=== PATIENT | female | born 1950 | race African-American/Black ===

== ENCOUNTER 2016-12-12 06:25 | Day surgery (SDC) | payer OTHER ==
[~2016-12-12] VITALS: Ht 162.6 cm; Wt 96.2 kg
[~2016-12-12 06:25] MED LIST: AMLODIPINE BESYL5 MG PO; ERGOCALCIF50000 UNIT PO; GABAPENTIN600 MG PO; GLUCOPHAGE1000 MG PO; GLYBURIDE5 MG PO; HYZAAR 100-21 TABLET PO; IRON 100-VITAM1 EACH PO; LISINOPRIL10 MG PO; METFORMIN HCL1000 MG PO; NEURONTIN300 MG PO; NORVASC10 MG PO; SIMVASTATIN20 MG PO; ULTRAM50 MG PO; VITAMIN B-12500 MC3 PO; ZYRTEC10 M2 PO
[2016-12-12 07:08] VITALS: BP 167/77
[2016-12-12 08:38] LABS: POINT-OF-CARE METER ID UU13113694
[2016-12-12 10:18] LABS: POINT-OF-CARE METER ID UU13113694
[2016-12-12] MEDS ORDERED: NORCO 5/3251 TABLET PO (11:46)
[2016-12-12 12:55] LABS: POINT-OF-CARE METER ID UU13113675
[2016-12-12 14:13] VITALS: BP 137/65
[2016-12-12 15:13] VITALS: BP 144/66
[2016-12-12 15:24] LABS: POINT-OF-CARE METER ID UU13113675
[2016-12-12 16:50] VITALS: BP 130/77
[2016-12-12 17:15] VITALS: BP 154/82
== END 2016-12-12 17:45 | disposition home or self-care (01) ==
LOC: NUC 06:25 → SDC 06:25
PROVIDERS: Surgery
DX: C50.912 Malignant neoplasm of unspecified site of left female breast (principal); C44.591 Other specified malignant neoplasm of skin of breast; I10 Essential (primary) hypertension; E78.5 Hyperlipidemia, unspecified; E11.9 Type 2 diabetes mellitus without complications; E53.8 Deficiency of other specified B group vitamins; Z68.38 Body mass index [BMI] 38.0-38.9, adult; E66.9 Obesity, unspecified; Z80.3 Family history of malignant neoplasm of breast; Z80.8 Family history of malignant neoplasm of other organs or systems; Z80.9 Family history of malignant neoplasm, unspecified; Z79.84 Long term (current) use of oral hypoglycemic drugs
CPT/HCPCS: 78195; 78999; 82948; 88305; A9541; J0330; J0690; J1100; J1170; J2250; J2405; J3010

== ENCOUNTER 2017-01-11 08:59 | Day surgery (SDC) | payer OTHER ==
[~2017-01-11] VITALS: Ht 162.6 cm; Wt 96.3 kg
[~2017-01-11 08:59] MED LIST changes: +NORCO 5/3251 TABLET PO
[2017-01-11 09:20] VITALS: BP 185/84
[2017-01-11 09:39] LABS: POINT-OF-CARE METER ID UU13113694
[2017-01-11 13:35] LABS: POINT-OF-CARE METER ID UU13113675; POINT-OF-CARE USER ID ADMKMM76
[2017-01-11] MEDS ORDERED: NORCO 5/3251 TABLET PO (13:43)
[2017-01-11 14:23] LABS: POINT-OF-CARE METER ID UU13113675
[2017-01-11 14:55] VITALS: BP 175/92
[2017-01-11 15:59] VITALS: BP 160/74
[2017-01-11 16:30] VITALS: BP 148/67
== END 2017-01-11 17:05 | disposition home or self-care (01) ==
LOC: SDC 08:59
PROVIDERS: Surgery
PROC: 0HBU0ZZ Excision of Left Breast, Open Approach (ICD-10-PCS; principal; 2017-01-11)
DX: C50.912 Malignant neoplasm of unspecified site of left female breast (principal); E78.5 Hyperlipidemia, unspecified; I12.9 Hypertensive chronic kidney disease with stage 1 through stage 4 chronic kidney disease, or unspecified chronic kidney disease; E11.22 Type 2 diabetes mellitus with diabetic chronic kidney disease; E11.65 Type 2 diabetes mellitus with hyperglycemia; Z79.84 Long term (current) use of oral hypoglycemic drugs; Z80.3 Family history of malignant neoplasm of breast; Z80.8 Family history of malignant neoplasm of other organs or systems
CPT/HCPCS: 82948; 88307; J0330; J0690; J1100; J1170; J2250; J2405; S0020

== ENCOUNTER 2017-01-13 18:56 | Emergency (ER) | payer OTHER ==
[~2017-01-13] VITALS: Ht 162.6 cm; Wt 97.2 kg
[2017-01-13 20:13] LABS: HEMATOCRIT 31.8 % (36.0-46.0); MCH 23.4 PG (29.0-34.0); MCHC 30.5 G/DL (30.0-36.0); MCV 76.6 FL (83-99); PLATELET COUNT 241 K/uL (156-360); RBC DIS.WIDTH-CV 15.8 % (11.8-14.6); RBC DIS.WIDTH-SD 43.2 % (39-53); RED BLOOD COUNT 4.15 M/uL (3.80-5.20); WHITE BLOOD COUNT 8.6 K/uL (4.1-10.2)
[2017-01-13 20:26] LABS: CHLORIDE 108 mEq/L (99-109); POTASSIUM 4.4 mEq/L (3.7-5.4); SODIUM 143 mEq/L (136-147)
[2017-01-13 20:28] LABS: GLUCOSE 105 mg/dL (70-99)
[2017-01-13 20:29] LABS: ANION GAP 9 MEQ/L (2-14)
[2017-01-13 20:32] LABS: GFR ESTIMATE (CALCULATED) 27 mL/min/
[2017-01-13 20:33] LABS: UREA NITROGEN (BUN) 27 mg/dL (9-23)
[2017-01-13 21:36] VITALS: BP 168/78
== END 2017-01-13 21:39 | disposition home or self-care (01) ==
LOC: EME 18:56
PROVIDERS: Physician Assistant Medical
DX: Z48.03 Encounter for change or removal of drains (principal); Z98.890 Other specified postprocedural states; N28.9 Disorder of kidney and ureter, unspecified; E11.9 Type 2 diabetes mellitus without complications; Z79.84 Long term (current) use of oral hypoglycemic drugs; I10 Essential (primary) hypertension
CPT/HCPCS: 80048; 85027; 99281; 99283

== ENCOUNTER → 2017-02-27 | Outpatient (CLI) | payer OTHER ==
[~2017-02-27] VITALS: Ht 162.6 cm; Wt 96.2 kg
[2017-02-27 11:36] LABS: POINT-OF-CARE METER ID UU14107333
== END | disposition home or self-care (01) ==
LOC: AMB 10:52
PROVIDERS: Internal Medicine
PROC: 0DJD8ZZ Inspection of Lower Intestinal Tract, Via Natural or Artificial Opening Endoscopic (ICD-10-PCS; principal; 2017-02-27)
DX: D50.9 Iron deficiency anemia, unspecified (principal); I10 Essential (primary) hypertension; E78.5 Hyperlipidemia, unspecified; E11.9 Type 2 diabetes mellitus without complications; Z80.3 Family history of malignant neoplasm of breast; Z80.8 Family history of malignant neoplasm of other organs or systems; E66.9 Obesity, unspecified; Z68.35 Body mass index [BMI] 35.0-35.9, adult; Z79.84 Long term (current) use of oral hypoglycemic drugs
CPT/HCPCS: 82948

== ENCOUNTER 2017-02-28 06:17 | Day surgery (SDC) | payer OTHER ==
[2017-02-28 07:19] LABS: POINT-OF-CARE METER ID UU13113696
== END 2017-02-28 09:30 | disposition home or self-care (01) ==
LOC: CATH 06:17
PROVIDERS: Surgery
DX: I87.8 Other specified disorders of veins (principal); C50.912 Malignant neoplasm of unspecified site of left female breast; E11.9 Type 2 diabetes mellitus without complications; I10 Essential (primary) hypertension; Z79.84 Long term (current) use of oral hypoglycemic drugs
CPT/HCPCS: 82948; C1751; C1894; J0690; J1644; J2250; J3010; S0020

== ENCOUNTER → 2017-08-11 | Outpatient (CLI) | payer OTHER | END | disposition home or self-care (01) | LOC: AMB 11:26 | DX: Z45.2 Encounter for adjustment and management of vascular access device (principal); I87.8 Other specified disorders of veins; Z92.21 Personal history of antineoplastic chemotherapy ==